=== PATIENT | male | born 1965 | race Caucasian/White ===

== ENCOUNTER → 2016-09-17 | Outpatient (CLI) | payer BC | LOC: RAD 10:47 | PROVIDERS: ATTEND Internal Medicine Sleep Medicine | DX: R93.8 Abnormal findings on diagnostic imaging of other specified body structures (principal); Z09 Encounter for follow-up examination after completed treatment for conditions other than malignant neoplasm | CPT/HCPCS: 71250 ==

== ENCOUNTER → 2017-01-01 | Outpatient (CLI) | payer BC ==
[~2017-01-01] MED LIST: ALFENTANIL 500 MCG/ML (ALFENTA) 5 ML AMP IV ONE; FAMO40TA72 PO; HYDR-3811 PO; LSNP10T PO; MIDAZOLAM 2 MG/2 ML (VERSED) VIAL ONE; PROPOFOL 20 ML IV ONE; SILD50TA PO; TRM50T PO
--- NOTE | 2017-01-01 15:25 | Diagnostic Imaging Report ---
EXAMINATION: CT chest with contrast from 01/01/2017. TECHNIQUE: Multiple contiguous axial images were obtained through the chest after administration of intravenous contrast. INDICATION: History of testicular carcinoma. Midabdominal pain which is radiating into the left side around to the left back, attention spleen and kidney. COMPARISON: Comparison made to CT dated 09/17/2016. FINDINGS: Since the previous examination, the mediastinal adenopathy has markedly worsened. In the upper mediastinum just to the right of the proximal esophagus, a previously noted 1 cm lymph node now measures 1.7 cm measured in a similar location. Multiple prominent lymph nodes within the anterior mediastinum are also noted and also increased in size. Multiple enlarging AP window lymph nodes are seen. The largest in the left aspect of the AP window is 2.2 x 4.3 cm in size, previously measuring 3.3 cm in greatest dimension. There are multiple enlarged precarinal lymph nodes, also all increased in size. The largest area is 3.7 x 2.4 cm. This same region previously measured 2.7 x 1.4 cm. A markedly enlarged lymph node or conglomerate of lymph nodes within the subcarinal region now measures 8.6 x 3.4 cm and previously measured 1.9 x 6.7 cm. There is a large conglomerate of lymph nodes in the right hilum with the maximum dimension of 5 cm. Maximum dimension of the lymphadenopathy in the left hilum is 3.8 cm. There are multiple enlarging lymph nodes in the axilla bilaterally, markedly worsened from previous imaging at which time they were normal in size. Bilateral gynecomastia incidentally noted. No significant pericardial effusion seen. There is no pleural effusion. Within the lungs, diffuse coarsened interstitial markings are noted bilaterally with mild emphysematous changes in the apices. There is a nodule within the right middle lobe of 1.2 cm in greatest dimension. This is new since the previous examination. There is a subpleural nodule in the anterior aspect of the left midlung, slightly increased in size since previous examination. The previously noted small less than 5 mm nodules in the right lower lobe are once again seen and not significantly changed. Osseous structures appear stable from previous imaging with multilevel degenerative findings noted throughout the visualized spine. IMPRESSION: 1. Marked interval worsening in appearance of the chest with diffuse lymphadenopathy throughout the mediastinum and bilateral radha, right worse than left. Bilateral developing axillary adenopathy also noted, all suspicious for diffuse worsening of metastatic disease. 2. New nodule within the right middle lobe, perhaps on the basis of metastasis as well with multiple other nodularities in the right lower lobe stable. An increasing subpleural nodule in the left midlung is also seen. 3. Diffusely coarsened interstitial markings throughout the remaining lungs as well as emphysematous disease, stable from previous. Other findings, as above. Dictated by: Dictated on workstation # [id number]
--- NOTE | 2017-01-01 15:45 | Diagnostic Imaging Report ---
EXAMINATION: CT of the abdomen with and without contrast dated 01/01/2017. TECHNIQUE: Multiple contiguous axial CT images of the abdomen were obtained prior to and after intravenous administration of iodinated contrast. INDICATION: History of testicular cancer. Pain in the mid abdomen and also into the left abdomen and left lower quadrant. Attention to the spleen and left kidney. COMPARISON: 08/11/2015. FINDINGS: There is marked splenomegaly. This has markedly increased since previous imaging with measurements today of 17.5 cm in AP dimension, 12.6 cm in transverse dimension, and at least 24.6 cm craniocaudal dimension. Nonspecific mild fat stranding posterior to the spleen is noted. There is no active bleeding. Mild adjacent fat stranding in between the spleen and left kidney also noted. The kidney itself is grossly unremarkable. Rounded splenule adjacent to the spleen is noted and increased in size from previous with previous measurement of 2.1 cm now measuring 2.6 cm. The adrenal glands are unremarkable. The liver is heterogeneous likely due to areas of fatty infiltration. No measurable masses are seen. There are clips in the right upper quadrant consistent with previous cholecystectomy. The pancreas is unremarkable. There is diffuse atherosclerotic disease along the course of the aorta and its branches. Scattered slightly prominent but not significantly enlarged lymph nodes are seen throughout the visualized retroperitoneum. A few scattered prominent lymph nodes throughout the mid mesentery also noted. There are fluid-filled small bowel loops in the mid abdomen incompletely imaged distally. No free air in the visualized abdomen is seen. Visualized osseous structures demonstrate diffuse degenerative disease. IMPRESSION: 1. Marked splenomegaly new since previous examination with adjacent posterior fat stranding nonspecific. Active bleeding is not appreciated. This could be due to a recent small amount of bleeding from the spleen or could be due to a nonspecific inflammatory process either from the spleen or left kidney itself. This could be due to diffuse metastatic/infiltrative process or even a separate process such as lymphoma, correlate clinically. A pyelonephritis is a possibility although abnormal enhancement of the left kidney is not visualized. Clinical correlation with symptoms recommended. 2. Mild lymphadenopathy in the mesentery and retroperitoneum. 3. Heterogeneous appearing liver nonspecific likely due to areas of fatty infiltration. 4. Other incidental findings as discussed above. 5. Fluid-filled prominent small bowel loops in the mid abdomen incompletely imaged and nonspecific perhaps due to focal enteritis but correlation with symptoms recommended. Report was faxed to the office of Dr. Forrest Burciaga at 3:39 p.m., by alex (for MK). Dictated by: Dictated on workstation # [id number]
== END ==
LOC: RAD 12:48
PROVIDERS: ATTEND Family Medicine
DX: R10.84 Generalized abdominal pain (principal); R16.1 Splenomegaly, not elsewhere classified; K76.0 Fatty (change of) liver, not elsewhere classified
CPT/HCPCS: 71260; 74170; Q9967

== ENCOUNTER → 2017-01-01 | Outpatient (REF) | payer BC ==
[~2017-01-01] MED LIST changes: -ALFENTANIL 500 MCG/ML (ALFENTA) 5 ML AMP IV ONE; -MIDAZOLAM 2 MG/2 ML (VERSED) VIAL ONE; -PROPOFOL 20 ML IV ONE
[2017-01-01 13:34] LABS: MEAN CORPUSCULAR VOLUME 83 FL (80-100); MEAN PLATELET VOLUME 9.7 FL (6.0-9.5); PLATELET COUNT 142 10^3uL (150-450); WHITE BLOOD COUNT 10.84 10^3uL (4.0-11.0)
[2017-01-01 13:56] LABS: ALBUMIN 4.3 g/dL (3.4-5.0); ANION GAP 15.2 MEQ/L (3-15); CALCULATED IONIZED CALCIUM 4.1 mg/dL (3.8-4.6); TOTAL PROTEIN 7.8 g/dL (6.4-8.5)
[2017-01-01 13:59] LABS: MEAN CORPUSCULAR HEMOGLOBIN 26.3 PG (26.0-34.0); MEAN CORPUSCULAR HGB CONC 31.5 g/dL (31.0-37.0)
[2017-01-01 14:14] LABS: BILIRUBIN,URINE Negative (Negative); CLARITY,URINE Clear; GLUCOSE, URINE (UA) Negative (Negative); LEUKOCYTE ESTERASE ,URINE Negative (Negative); UROBILINOGEN,URINE 0.2 mg/dL (0.2-1.0)
[2017-01-01 14:37] LABS: COLOR,URINE Dark Yellow
[2017-01-01 14:38] LABS: RBC,URINE None Seen /HPF; URINE CENTRIFUGED VOLUME 12 mL
[2017-01-01 16:15] LABS: BAND NEUTROPHILS % 7 % (0-6); EOSINOPHILS % 1 % (0-4); LYMPHOCYTES # 3.8 #; MONOCYTES # 0.4 #; MONOCYTES % 4 % (3-11); SEGMENTED NEUTROPHILS % 46 % (51-67)
[2017-01-01 16:16] LABS: TOTAL CELLS COUNTED 100
[2017-01-01 16:17] LABS: RBC MORPH NORMAL (NORMAL)
== END ==
LOC: LAB 12:44
PROVIDERS: ATTEND Family Medicine
DX: R10.84 Generalized abdominal pain (principal)
CPT/HCPCS: 80053; 81003; 81015; 82105; 84702; 85025; 86140

== ENCOUNTER 2017-01-03 12:54 | Day surgery (SDC) | payer BC ==
[~2017-01-03] VITALS: Ht 198.1 cm; Wt 101.0 kg
[~2017-01-03 12:54] MED LIST changes: +LIDOCAINE/EPINEPHRINE 1%-1:100,000 (XYLOCAINE) 20ML VIAL ONE; +METHYLENE BLUE 0.5% 50 MG/10 ML VIAL ONE
--- OUTSIDE RECORDS SUMMARY | 2017-01-03 12:56 | XMS REPORT | Summary of Care ---
Author Author Leonard Gonzalez M.D. Unknown Address Unknown Phone Unavailable Care Team Providers Care Hotel Registration Clerk Name Role Phone Estrella Gonzalez M.D. Unavailable Unavailable Forrest Burciaga Unavailable Unavailable Functional Status Name Dates Details Functional status health issues are not documented Status: Name Dates Details Cognitive status health issues are not documented Status: Problems Name Dates Details Abnormal chest CT (793.2, R93.8) Status: Active Difficulty breathing (786.09, R06.89) Status: Active Medications Name Dates Details Lisinopril 10 MG Oral Tablet TAKE 1 TABLET DAILY. Refills: 0 Leonard Gonzalez M.D. Start 29-Dec-2014 Active Cyclobenzaprine HCl - 10 MG Oral Tablet TAKE ONE TABLET BY MOUTH THREE TIMES A DAY NEEDED Quantity: 30 Refills: 0 Leonard Gonzalez M.D. Start 29-Dec-2014 Active Naproxen 500 MG Oral Tablet TAKE 1 TABLET BY MOUTH TWICE DAILY NEEDED Quantity: 180 Refills: 0 Leonard Gonzalez M.D. Start 29-Dec-2014 Active Tylenol Extra Strength 500 MG Oral Tablet Take two tablets in the a.m. Refills: 0 Leonard Gonzalez M.D. Start 29-Dec-2014 Active Allergies and Adverse Reactions Name Dates Details No Known Drug Allergies (Allergy) Status: Active Past Medical History Name Dates Details History of Hypertension, benign (401.1, I10) Status: Resolved History of malignant neoplasm of testis (V10.47, Z85.47) Status: Resolved Procedures Procedure Dates Details History of Orchiectomy Right Procedures not documented Immunization Name Dates Details Immunizations not documented Family History Name Dates Details Family history of hypothyroidism (V18.19, Z83.49) Status: Active Name Dates Details Family history of leukemia (V16.6, Z80.6) Status: Active Social History Name Dates Details - Status: Name Dates Details Current every day smoker Vital Signs Date Test Result Details 25-Sep-2016 10:40 BP Systolic 110 mm[Hg] Status: Comments: Location: ; Position: BP Diastolic 62 mm[Hg] Status: Comments: Location: ; Position: Heart Rate 85 /min Status: Comments: Location: ; Height 78 in Status: Weight 236 lb Status: Physical Findings 96 Status: Comments: O2 Saturation Body Mass Index Calculated 27.27 kg/m2 Status: Body Surface Area Calculated 2.42 m2 Status: Results Date Description Value Details Results not documented Plan of Care Name Dates Details Planned Observations Planned Goals not documented Planned Encounters Appointment; Provider: Leonard Gonzalez M.D. On 25-Sep-2017 10:45 Instructions Name Dates Details Instructions not documented Encounters Appointment; Leonard Gonzalez M.D. Encounter Diagnosis: Problem not documented On 25-Sep-2015 10:45 Appointment; Leonard Gonzalez M.D. Encounter Diagnosis: Problem not documented On 23-Mar-2015 14:00 Appointment; Leonard Gonzalez M.D. Encounter Diagnosis: Problem not documented On 29-Dec-2014 17:30
[2017-01-03 13:10] VITALS: BP 103/70
[2017-01-03] MEDS ORDERED: LACTATED RINGERS 1,000 ML IV SCH (13:30)
[2017-01-03] MEDS ORDERED: SODIUM CHLORIDE FLUSH 3 ML SYR IV PRN (13:30)
[2017-01-03 15:32] VITALS: BP 102/66
[2017-01-03 15:57] VITALS: BP 115/69
--- NOTE | 2017-01-04 06:17 | OPERATIVE REPORT ---
DATE OF OPERATION: 01/03/2017 PRE-OPERATIVE DIAGNOSIS: Diffuse lymphadenopathy. POST-OPERATIVE DIAGNOSIS: Diffuse lymphadenopathy. OPERATIVE PROCEDURE: Lymph node biopsy left axilla. SURGEON: Ladarius Machado MD [employer] APPRENTICE: JAREK Aguirre ANESTHESIA: Monitored anesthesia care with local. INDICATIONS: The patient is a 51-year-old referred by Dr. Burciaga for evaluation of recently diagnosis lymphadenopathy, along with splenomegaly that has been symptomatic. He is here today for biopsy of an enlarged left axillary lymph nodes to establish a diagnosis. DESCRIPTION OF PROCEDURE: The patient was informed of the risks and benefits and agreed to proceed. He was taken to the operating room and placed supine on a standard operating table. He was administered IV sedation and his left arm was abducted on an arm board at this side. When properly sedated, his left axilla was prepped and draped in standard sterile fashion. 1% lidocaine with epinephrine was injected at the lower portion of the axillary hairline and a 15-blade scalpel was used to make a transverse incision measuring about 4 cm in length through the skin. Dissection was carried forth with electrocautery through the subcutaneous adipose tissue and the clavipectoral fascia was exposed. This was gently opened with the Metzenbaum scissors to enter the axillary space. A combination of gentle blunt and sharp dissection was then used to identify an enlarged grayish colored lymph node near the chest wall. The sensory nerve to the axillary skin was preserved. As the bulky, enlarged lymph node, which measured about 3 cm in diameter, was retracted and drawn up into the wound, the patient experienced significant discomfort. Therefore, rather than try to remove this lymph node, I elected to perform an incisional biopsy. A 3-0 Vicryl suture was placed at the superior aspect of the node, and then the 15-blade scalpel was used to make incisions to excise 2 wedges of the node below the suture. These were sent to pathology in Formalin and RPMI. The resulting defect was then closed with the running 3-0 Vicryl suture to improve hemostasis. There was some slight oozing after the biopsy that seemed to completely stop after the suture was placed. There was still some raw surface of the lymph node above the suture line, so I placed a piece Surgicel over it to help prevent any bleeding or significant leaking of lymphatic fluid. The wound had been irrigated sterile saline prior to that and hemostasis complete. The subcutaneous tissue was reapproximated with interrupted 3-0 Vicryl near the dermis, and then the skin was closed with subcuticular 4-0 Monocryl. Dressing was applied. The patient tolerated the procedure without complications.
== END 2017-01-03 16:00 | disposition home or self-care (01) ==
LOC: ASC 12:54
PROVIDERS: ATTEND Surgery
DX: R59.0 Localized enlarged lymph nodes (principal)